=== PATIENT | female | born 1985 | race Caucasian/White ===

== ENCOUNTER → 2016-07-11 | Outpatient (CLI) | payer OTHER ==
[2016-07-11 10:33] LABS: HEMATOCRIT 43.6 % (37.0-47.0); HEMOGLOBIN 15.2 g/dL (12.0-16.0); MEAN CORPUSCULAR HEMOGLOBIN 31.4 PG (27-31); MEAN CORPUSCULAR HGB CONC 34.9 g/dL (33-37); MEAN PLATELET VOLUME 10.1 FL (7.4-12.2); RDW COEFFICIENT OF VARIATION 14.4 % (11.5-14.5); RED BLOOD COUNT 4.84 10^6/uL (4.20-5.40); WHITE BLOOD COUNT 10.68 10^3/uL (4.8-10.8)
[2016-07-11 11:00] LABS: ASPARTATE AMINO TRANSFERASE 21 IU/L (8-39); BILIRUBIN,TOTAL 0.6 mg/dL (0.3-1.2); BLOOD UREA NITROGEN 12 mg/dL (7-22); CALCIUM 9.4 mg/dL (8.7-10.7); CHLORIDE 110 meq/L (98-112); CREATININE 0.8 mg/dL (0.50-1.20); EST GLOMERULAR FILTRATION > 60 (>60 ml/min/1.73m(2)); GLUCOSE 92 mg/dL (78-110); HDL CHOLESTEROL 33 mg/dL (40-150); POTASSIUM 3.8 meq/L (3.8-5.2); SODIUM 141 meq/L (135-145); TOTAL PROTEIN 7.3 g/dL (6.1-8.0); TRIGLYCERIDES 81 mg/dL (44-200)
== END ==
LOC: LAB 10:14
PROVIDERS: ATTEND Obstetrics & Gynecology Gynecology
DX: M54.5 Low back pain (principal); M79.604 Pain in right leg; M79.605 Pain in left leg; E66.01 Morbid (severe) obesity due to excess calories; R51 Headache
CPT/HCPCS: 36415; 80053; 80061; 84443; 85027

== ENCOUNTER 2016-12-09 21:29 | Emergency (ER) | payer OTHER ==
[2016-12-09 21:40] VITALS: RESP 16; TEMP 97.6
--- NOTE | 2016-12-09 22:32 | PDOC ---
Upper Extremity Problem HPI - General Chief Complaint: Upper Extremity Problem/Injury Stated Complaint: BRUISING/SWELLING/PREDIABETIC Date Seen by Provider: 12/09/16 Time Seen by Provider: 21:35 Source: POSITIVE: Patient Exam Limitations: POSITIVE: No limitations Nurse's Notes Reviewed & Considered: Yes - History of Present Illness Initial Comments: The patient is a 31-year-old female who presents to the emergency department with a bite to her left arm. She states that yesterday she was outside when she felt a bite to her left arm. She is unsure exactly what had bitten her. Over the last 24 hour she's developed a bruise in the area of the bite as well as some surrounding redness and swelling. She denies fevers or chills. As a side note since the patient is here she is concerned about the possibility of her having diabetes. She states that she has been thirsty and has been bruising a lot. She has a strong family history of diabetes and would like her blood sugar checked. - Patient Home Medications Home Medications: Home Medications Lorazepam [Ativan] 1 tab PO PRN tab 10/27/16 Sertraline HCl [Zoloft] 1 tab PO DAILY tab 10/27/16 Phentermine HCl 37.5 mg PO DAILY 12/09/16 Sulfameth/Trimeth 800/160 Tab [Bactrim DS 800/160 Tab] 1 each PO BID #10 tablet 12/09/16 Sumatriptan Succinate [Imitrex] 25 mg PO PRN 12/09/16 Topiramate [Topamax] 25 mg PO DAILY 12/09/16 - Patient Allergies Allergies/Adverse Reactions: Allergies Allergy/AdvReac Type Severity Reaction Status Date / Time No Known Allergies Allergy Verified 12/09/16 21:31 Past Medical History - heen HEENT History: Denies History Cardiovascular History: Denies History Respiratory History: Other (please comment) Additional Respiratory History: SNORES- NEVER BEEN DIAGNOSED WITH SLEEP APNEA Gastrointestinal History: GERD, Other (please comment) Additional Gastrointestinal History: APPENDECTOMY 2005. FREQUENT HEARTBURN Genitourinary History: Denies History Endocrine History: Denies History Musculoskeletal History: Other (please comment) Prosthesis or Implant: No Additional Musculoskeletal History: LEFT KNEE PAIN Neurological History: Denies History Blood Disorders: Denies History Psychiatric History: Denies History History of Sexually Transmitted Diseases: No Female Reproductive History: Denies History Obstetrical History: Denies History Cancer History: Denies History In Past Year Been Physically Harmed or Verbally Threatened: No History of MDRO: Yes Type of MDRO: C-Diff History of Other Communicable Diseases: No Tobacco Use: Current Every Day Smoker Alcohol Use: None Substance Use Type: None Previous Surgical History: Yes Type / Date of Surgery: APPENDECTOMY 2005/ LEFT KNEE SCOPE 08/2015 Anesthesia Reactions: No Malignant Hyperthermia: No Significant Family History: Heart disease, Cancer, Diabetes Past Medical History Reviewed: Reviewed - No Changes ROS - Limitations ROS Limitations: No Limitations Constitution: REPORTS: Chills (She states related to the change in temperature outside). DENIES: Fever Cardiovascular: REPORTS: Denies Cardiac Symptoms Respiratory: REPORTS: Denies Resp Symptoms Gastrointestinal: REPORTS: Denies GI Symptoms Eyes: REPORTS: Denies Symptoms ENT: REPORTS: Denies Symptoms Skin: REPORTS: Other (She has been bruising more than usual recently). DENIES: Rash Upper Extremity Problem Exam - General Appearance General Appearance: POSITIVE: Alert, Cooperative, No Acute Distress - Upper Extremity Upper Extremity: POSITIVE: Other (Examination left upper extremity does reveal a small area of ecchymosis around the bite on her left arm, there is an area approximately 6 or 7 cm in diameter of erythema and some mild swelling, this is not particularly warm to the touch, good radial pulse in the left wrist) Vascular: POSITIVE: No Vascular Compromise - Neuro / Psych Peripheral Neuro Exam: POSITIVE: Sensation Normal, Motor Normal - HEENT HEENT: POSITIVE: Head Inspection Nml - Respiratory / CVS Respiratory / CVS: POSITIVE: No Respiratory Distress, Breath Sounds Normal, Regular Rate & Rhythm, Heart Sounds Normal Upper Ext Problem Progress - Patient's Progress MDM / ED Course: Her bedside blood sugar was checked and was 86. She was instructed that her blood sugar currently is normal. In regard to the bite on her left arm, it appears that this is most likely a localized allergic reaction. There is some possibility of cellulitis. I had recommended that we start antibiotics however the patient states that she has a history of recurrent C. difficile and is very leery of taking antibiotics unless they are absolutely necessary. I told her that it would be reasonable to watch this for the next couple of days. If it seems to be getting better than she can withhold antibiotics. If it is not getting better seems to be getting worse than I recommended starting Bactrim DS , one twice a day for 5 days. She was also instructed to return to the emergency room if she develops increased swelling, fevers or chills, any worsening or change in symptoms. She is advised to follow-up with her primary care provider regarding her bruising and concerns about diabetes. - Consult Counseled: POSITIVE: Patient, RE: Lab Results, RE: DX, RE: Need for F/U Patient Care Time - Estimated PCT Patient Care Time (In Minutes): 15 Vital Signs - Recent Vital Signs Vital Signs: Vital Signs (Last 8 hours) Temp Pulse Resp BP Pulse Ox 12/09/16 21:33 97.6 F 81 16 120/89 95 12/09/16 21:30 97.6 F 81 16 120/89 95 - VS Reviewed Vital Signs Reviewed: Yes Discharge Clinical Impression: Insect bite Discharge Disposition: Discharged to Home Condition: Stable Prescriptions / Orders: Sulfameth/Trimeth 800/160 Tab [Bactrim DS 800/160 Tab] 1 each PO BID #10 tablet Patient Instructions Given at Discharge: Insect Bite or Sting (ED) Additional Instructions: Your blood sugar was normal at 83. You appear to have a localized allergic reaction and some bruising associated with an insect bite to the left arm. Recommend Benadryl 25-50 mg as needed for swelling or itching. In addition it is possible there may be some component of a skin infection. Because of your history of C. difficile we are going to try and hold off on antibiotics. If however the redness seems to be getting worse or is not improving in the next 24 -48 hours then you should start Bactrim DS one twice a day for 5 days. Return to the emergency room if marked worsening, fevers or chills, any worsening or change in symptoms. Recommend follow-up with primary care in 3-5 days. Follow Up With: MARLENA BURCH [Primary Care Provider] -
== END 2016-12-09 21:57 | disposition home or self-care (01) ==
LOC: ER 21:29
DX: S40.862A Insect bite (nonvenomous) of left upper arm, initial encounter (principal); W57.XXXA Bitten or stung by nonvenomous insect and other nonvenomous arthropods, initial encounter
CPT/HCPCS: 82948; 99282

== ENCOUNTER → 2016-12-16 | Outpatient (CLI) | payer OTHER ==
[2016-12-16 11:12] LABS: HEMATOCRIT 45.4 % (37.0-47.0); HEMOGLOBIN 15.5 g/dL (12.0-16.0); MEAN CORPUSCULAR HEMOGLOBIN 31.2 PG (27-31); MEAN CORPUSCULAR HGB CONC 34.1 g/dL (33-37); MEAN CORPUSCULAR VOLUME 91.3 FL (81-99); MEAN PLATELET VOLUME 9.6 FL (7.4-12.2); RED BLOOD COUNT 4.97 10^6/uL (4.20-5.40)
[2016-12-16 11:22] LABS: BLOOD UREA NITROGEN 9 mg/dL (7-22); CALCIUM 8.6 mg/dL (8.7-10.7); EST GLOMERULAR FILTRATION > 60 (>60 ml/min/1.73m(2)); SERUM ALBUMIN 3.8 g/dL (3.5-4.8)
== END ==
LOC: LAB 11:01
PROVIDERS: ATTEND Obstetrics & Gynecology Gynecology
DX: T14.8 Other injury of unspecified body region (principal)
CPT/HCPCS: 36415; 80053; 85027; 85610; 85730

== ENCOUNTER 2017-01-16 00:20 | Emergency (ER) | payer OTHER ==
[2017-01-16 00:53] VITALS: RESP 20; TEMP 97
[2017-01-16] MEDS ORDERED: NORMAL SALINE 10 ML SYRINGE FLUSH IVP PRN (01:07)
--- NOTE | 2017-01-16 01:07 | PDOC ---
GI Bleed/Rectal Complaint HPI - General Chief Complaint: GI Bleed / Rectal Pain Stated Complaint: RECTAL BLEEDING Date Seen by Provider: 01/16/17 Time Seen by Provider: 01:01 Source: POSITIVE: Patient Exam Limitations: POSITIVE: No limitations Nurse's Notes Reviewed & Considered: Yes - History of Present Illness Initial Comments: This is a 31-year-old female who presents to the emergency department with a history of intermittent rectal bleeding for the past week. She had an initial bout of rectal bleeding about week ago, she thought she may have strained too much, but did not have any pain. She was unaffected by bleeding for the rest of the week until tonight when she had a recurrence of rectal bleeding. This episode was not as severe as initial episode. She has no associated nausea or vomiting, no abdominal pain, no rectal pain. She has no fevers, chills, or body aches she has no vaginal bleeding or discharge. She does feel fatigued. - Patient Home Medications Home Medications: Home Medications Lorazepam [Ativan] 1 tab PO PRN tab 10/27/16 Sertraline HCl [Zoloft] 1 tab PO DAILY tab 10/27/16 Phentermine HCl 37.5 mg PO DAILY 12/09/16 Sumatriptan Succinate [Imitrex] 25 mg PO PRN 12/09/16 Topiramate [Topamax] 25 mg PO DAILY 12/09/16 - Patient Allergies Allergies/Adverse Reactions: Allergies Allergy/AdvReac Type Severity Reaction Status Date / Time No Known Allergies Allergy Verified 01/16/17 00:36 Past Medical History - heen HEENT History: Denies History Cardiovascular History: Denies History Respiratory History: Snoring, Other (please comment) Additional Respiratory History: SNORES- NEVER BEEN DIAGNOSED WITH SLEEP APNEA Gastrointestinal History: GERD, Other (please comment) Additional Gastrointestinal History: APPENDECTOMY 2005. FREQUENT HEARTBURN Genitourinary History: Denies History Endocrine History: Denies History Musculoskeletal History: Other (please comment) Prosthesis or Implant: No Additional Musculoskeletal History: LEFT KNEE PAIN Neurological History: Denies History Blood Disorders: Denies History Psychiatric History: Depression, Anxiety Disorders History of Sexually Transmitted Diseases: No Female Reproductive History: Denies History Obstetrical History: Denies History Cancer History: Denies History In Past Year Been Physically Harmed or Verbally Threatened: No History of MDRO: Yes History of Other Communicable Diseases: No Tobacco Use: Current Every Day Smoker Alcohol Use: None Substance Use Type: None Previous Surgical History: Yes Type / Date of Surgery: APPENDECTOMY 2005/ LEFT KNEE SCOPE 08/2015 Anesthesia Reactions: No Malignant Hyperthermia: No Significant Family History: Heart disease, Cancer, Diabetes Past Medical History Reviewed: Reviewed - No Changes ROS - Limitations ROS Limitations: No Limitations Constitution: DENIES: Chills, Fever Neurological: DENIES: Dizziness Gastrointestinal: REPORTS: Bloody Stools. DENIES: Abdominal Pain, Nausea, Vomitting, Diarrhea, Constipation Endocrine: REPORTS: Fatigue Genitourinary: DENIES: Dysuria, Hematuria GI Bleed / Rectal Complaint PE - General Appearance General Appearance: POSITIVE: Alert, Cooperative, No Acute Distress - HEENT HEENT: NEGATIVE: Scleral Icterus - Respiratory Respiratory: POSITIVE: No Respiratory Distress, Breath Sounds Normal - Cardiovascular Cardiovascular: POSITIVE: Regular Rate and Rhythm, Heart Sounds Normal - Abdomen Additional Abdomen Details: Abdominal exam reveals no tenderness to palpation, nondistended, active bowel sounds, no obvious organomegaly, although the exam is limited by body habitus - Skin Skin: POSITIVE: Warm, Dry - Neurological / Psychological Neurological: POSITIVE: Affect Apporpriate, Oriented X3 GI Bleed / Rectal Progress - Results Reviewed by me Lab Results Reviewed: Yes Lab Results:: Laboratory Results 01/16/17 Range/Units 01:26 WBC 13.17 H (4.8-10.8) 10^3/uL RBC 4.75 (4.20-5.40) 10^6/uL Hgb 15.0 (12.0-16.0) g/dL Hct 43.1 (37.0-47.0) % MCV 90.7 (81-99) FL MCH 31.6 H (27-31) PG MCHC 34.8 (33-37) g/dL RDW Std Deviation 45.7 (39-50) fL RDW Coeff of [place] 14.0 (11.5-14.5) % Plt Count 318 (140-350) 10*3/uL MPV 9.9 (7.4-12.2) FL Immature Gran % (Auto) 0.5 (0-5) % Neut % (Auto) 55.9 (50-80) % Lymph % (Auto) 34.1 (10-50) % [place] % (Auto) 7.8 (5-15) % Eos % (Auto) 0.8 (0-8) % Baso % (Auto) 0.9 (0-1) % Immature Gran # (Auto) 0.07 10*3/UL Neut # (Auto) 7.35 10*3/UL Lymph # (Auto) 4.49 10*3/uL [place] # (Auto) 1.03 H (0.3-0.8) 10*3/UL Eos # (Auto) 0.11 10*3/UL Baso # (Auto) 0.12 10*3/UL WBC Morphology Comment Normal morphology (NORM) Plt Morphology Comment Normal morphology (NORM) RBC Morph Comment Normal morphology (NORM) PT 10.4 (9.7-11.4) secs INR 0.98 (0.00-5.90) N/A APTT 29.3 (22.6-36.2) SECS Sodium 139 (135-145) meq/L Potassium 3.6 L (3.8-5.2) meq/L Chloride 104 (98-112) meq/L Carbon Dioxide 27 (23-33) meq/L Anion Gap 8 (5-20) BUN 11 (7-22) mg/dL Creatinine 0.7 (0.50-1.20) mg/dL Estimated GFR > 60 (>60 ml/min/1.73m(2)) BUN/Creatinine Ratio 15.71 (6-20) Glucose 93 (78-110) mg/dL Calculated Osmolality 286.0 (267-292) mOsm/kg Calcium 8.8 (8.7-10.7) mg/dL - Patient's Progress Pain Medication Addressed: POSITIVE: Not Applicable Re-Examine Time:: 02:19 Re-Examine Comment: No change in symptoms. Status: POSITIVE: Unchanged MDM / ED Course: Emergency room course: After initial evaluation, an IV was started and blood was drawn. She was given a liter of normal saline. Once the labs were reviewed , they were discussed with the patient. She was still asymptomatic. I believe the patient most likely has internal hemorrhoids. Will prescribe her Anusol HC suppositories. Follow up with her primary provider if no improvement in 1 week. Return to the ER if bleeding gets worse. - Consult Counseled: POSITIVE: Patient, RE: Lab Results, RE: DX, RE: Need for F/U Patient Care Time - Estimated PCT Patient Care Time (In Minutes): 15 Vital Signs - Recent Vital Signs Vital Signs: Vital Signs (Last 8 hours) Temp Pulse Resp BP Pulse Ox 01/16/17 00:29 97.0 F 83 20 141/100 97 Discharge Clinical Impression: Rectal bleeding Discharge Disposition: Discharged to Home Condition: Stable Patient Instructions Given at Discharge: Hemorrhoids (ED)
[2017-01-16] MEDS ORDERED: Sodium Chloride 0.9% 1,000 ML PRIMARY IV ONE (01:08)
[2017-01-16 01:36] LABS: BLOOD UREA NITROGEN 11 mg/dL (7-22); BUN/CREATININE RATIO 15.71 (6-20); CALCIUM 8.8 mg/dL (8.7-10.7); EST GLOMERULAR FILTRATION > 60 (>60 ml/min/1.73m(2))
[2017-01-16 01:56] LABS: BASOPHILS # (AUTO) 0.12 10*3/UL; BASOPHILS % (AUTO) 0.9 % (0-1); EOSINOPHILS # (AUTO) 0.11 10*3/UL; EOSINOPHILS % (AUTO) 0.8 % (0-8); HEMATOCRIT 43.1 % (37.0-47.0); LYMPHOCYTES # (AUTO) 4.49 10*3/uL; MEAN CORPUSCULAR HEMOGLOBIN 31.6 PG (27-31); MEAN CORPUSCULAR HGB CONC 34.8 g/dL (33-37); MEAN CORPUSCULAR VOLUME 90.7 FL (81-99); MEAN PLATELET VOLUME 9.9 FL (7.4-12.2); MONOCYTES # (AUTO) 1.03 10*3/UL (0.3-0.8); MONOCYTES % (AUTO) 7.8 % (5-15); NEUTROPHILS # (AUTO) 7.35 10*3/UL; NEUTROPHILS % (AUTO) 55.9 % (50-80); PLATELET MORPHOLOGY COMMENT NORMAL MORPHOLOGY (NORM); RBC MORPHOLOGY COMMENT NORMAL MORPHOLOGY (NORM); RED BLOOD COUNT 4.75 10^6/uL (4.20-5.40); WBC MORPHOLOGY COMMENT NORMAL MORPHOLOGY (NORM)
[2017-01-16] MEDS ORDERED: BUPIVACAINE 0.25% W/ EPI - 10 ML VIAL ONE (06:47)
== END 2017-01-16 02:30 | disposition home or self-care (01) ==
LOC: ER 00:20
DX: K62.5 Hemorrhage of anus and rectum (principal)
CPT/HCPCS: 80048; 85025; 85610; 85730; 96360; 99282; 99283; J7030

== ENCOUNTER 2017-02-07 18:00 | Emergency (ER) | payer OTHER ==
[~2017-02-07 18:00] MED LIST: Sodium Chloride 0.9% 1,000 ML PRIMARY IV ONE
[2017-02-07] MEDS ORDERED: LORazepam 2 MG/1 ML VIAL IVP ONE ×2 (18:23→23:08)
[2017-02-07] MEDS ORDERED: ONDANSETRON 4 MG/2 ML VIAL IVP ONE (18:23)
[2017-02-07] MEDS ORDERED: MORPHINE SULFATE 4 MG/1 ML IVP ONE ×2 (18:23→20:45)
[2017-02-07] MEDS ORDERED: Sodium Chloride 0.9% 1,000 ML PRIMARY IV ONE (18:23)
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
--- NOTE | 2017-02-07 18:33 | EKG ---
[address] [address] Measurements Intervals [place] Rate: 64 P: 62 AR: 170 QRS: 34 QRSD: 84 T: 30 QT: 398 QTc: 407 Interpretive Statements SINUS RHYTHM SLOW R WAVE PROGRESSION V1-V3 No previous ECG available for comparison Electronically Signed On 02-08-17 13:39:38 MDT by Chandana Nath [email or web address]
[2017-02-07 19:09] LABS: BASOPHILS # (AUTO) 0.07 10*3/UL; BASOPHILS % (AUTO) 0.5 % (0-1); EOSINOPHILS # (AUTO) 0.12 10*3/UL; EOSINOPHILS % (AUTO) 0.8 % (0-8); HEMATOCRIT 48.3 % (37.0-47.0); HEMOGLOBIN 16.7 g/dL (12.0-16.0); LYMPHOCYTES # (AUTO) 3.76 10*3/uL; MEAN CORPUSCULAR HGB CONC 34.6 g/dL (33-37); MEAN CORPUSCULAR VOLUME 89.6 FL (81-99); MEAN PLATELET VOLUME 10.2 FL (7.4-12.2); MONOCYTES # (AUTO) 0.94 10*3/UL (0.3-0.8); MONOCYTES % (AUTO) 6.5 % (5-15); NEUTROPHILS # (AUTO) 9.38 10*3/UL; NEUTROPHILS % (AUTO) 65.1 % (50-80); RED BLOOD COUNT 5.39 10^6/uL (4.20-5.40)
[2017-02-07 19:13] LABS: BLOOD UREA NITROGEN 9 mg/dL (7-22); CALCIUM 8.9 mg/dL (8.7-10.7); EST GLOMERULAR FILTRATION > 60 (>60 ml/min/1.73m(2)); SERUM ALBUMIN 3.7 g/dL (3.5-4.8)
[2017-02-07 19:14] LABS: PLATELET MORPHOLOGY COMMENT NORMAL MORPHOLOGY (NORM); RBC MORPHOLOGY COMMENT NORMAL MORPHOLOGY (NORM); WBC MORPHOLOGY COMMENT NORMAL MORPHOLOGY (NORM)
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
[2017-02-07] MEDS ORDERED: LIDOCAINE HCL 1%/EPI 1:100,000 - 20 ML VIAL SUBCUT ONE (21:00)
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
[2017-02-07 21:22] VITALS: RESP 18; TEMP 97
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
[2017-02-07 22:21] LABS: BACTERIA,URINE FEW; BILIRUBIN,URINE NEGATIVE (NEG); CLARITY,URINE CLEAR (CLEAR); COLOR,URINE YELLOW; GLUCOSE, URINE (UA) NEGATIVE (NEG); NITRATE,URINE NEGATIVE (NEG); OCCULT BLOOD,URINE MODERATE (NEG); PH,URINE 5.5 (5.0-8.5); PROTEIN,URINE 30 mg/dl (NEG); SQUAMOUS EPITHELIAL CELL,UR MODERATE; URINE SAMPLE TYPE CLEAN CATCH URINE; UROBILINOGEN,URINE 0.2 EU/dL (0.2); WBC,URINE 0-1
[2017-02-07 22:25] LABS: AMPHETAMINE SCREEN POSITIVE (NEG); CANNABINOID SCREEN,URINE NEGATIVE (NEG); COCAINE SCREEN NEGATIVE (NEG); METHADONE URINE SCREEN NEGATIVE (NEG); METHAMPHETAMINES SCREEN,URINE NEGATIVE (NEG); OPIATE SCREEN,URINE POSITIVE (NEG); URINE SAMPLE TYPE CLEAN CATCH URINE; URINE SPECIFIC GRAVITY - MAN 1.015
[2017-02-07] MEDS ORDERED: Lidocaine Inj 1% 0 ML ONE (22:38)
[2017-02-07] MEDS ORDERED: LIDOCAINE HCL 1%/EPI 1:100,000 - 20 ML VIAL ONE (22:39)
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
[2017-02-07] MEDS ORDERED: Bacitracin Oint 14.2 gm tube 14 APPLIC/14.2 GM TUBE TOPICAL ONE (23:13)
[2017-02-07] MEDS ORDERED: HYDROcodone-APAP 5 MG -325 MG TABLET PO SCH (23:15)
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
[2017-02-07] MEDS ORDERED: CEPHALEXIN 500 MG CAPSULE PO ONE (23:40)
== END 2017-02-07 23:59 | disposition home or self-care (01) ==
LOC: ER 18:00
DX: S51.812A Laceration without foreign body of left forearm, initial encounter (principal); M25.512 Pain in left shoulder; M25.522 Pain in left elbow; S40.812A Abrasion of left upper arm, initial encounter; S40.811A Abrasion of right upper arm, initial encounter; S80.812A Abrasion, left lower leg, initial encounter; S80.811A Abrasion, right lower leg, initial encounter; S00.81XA Abrasion of other part of head, initial encounter; R51 Headache; M54.2 Cervicalgia; S00.01XA Abrasion of scalp, initial encounter; V48.5XXA Car driver injured in noncollision transport accident in traffic accident, initial encounter
CPT/HCPCS: 12002 ×2; 36415; 70450; 71010; 71260; 72125; 73030; 73080 ×2; 74177; 80053; 80305; 80320; 81001; 82150; 83605; 83690; 84443; 84703; 85025; 85610; 86850; 86900; 86901; 93005; 93010; 96361; 96374; 96375; 96376; 99283 ×2; J2060; J2270; J2405; J7030